=== PATIENT | male | born 1985 | race Caucasian/White ===

== ENCOUNTER → 2020-09-11 | Outpatient (CLI) | payer OTHER ==
[~2020-09-11] MED LIST: BENADRYL 25MG C25 MG PO; PEPCID40 MG PO; PREDNISONE 50 M50 MG PO
== END ==
LOC: CT 09-10 08:00
DX: R16.0 Hepatomegaly, not elsewhere classified (principal); K76.0 Fatty (change of) liver, not elsewhere classified
CPT/HCPCS: 74160; Q9967